=== PATIENT | female | born 1955 | race Caucasian/White ===

== ENCOUNTER 2024-04-29 05:34 | Observation (INO) ==
[~2024-04-29 05:34] MED LIST: NS 0.45% 1000 ml BAG 1,000 ML IV SCH; Naloxone 0.4 mg VIAL 0.4 mg/ml 1 ml VIAL IV PRN; Ondansetron 4 mg VIAL 2 MG/ML 2 ml VIAL IV PRN
[2024-04-29] MEDS: Buffered Lidocaine 1% SYRIN 1 ml INTRADERM ONE (06:01)
[2024-04-29] MEDS ORDERED: Tranexamic Acid 1 GM/100ML BAG 2,000 MG/200 ML BAG IV ONE (06:08)
[2024-04-29] MEDS ORDERED: ceFAZolin 2 GM PREMIX 2 GM/50 ML BAG ONE (06:08)
[2024-04-29] MEDS: Lactated Ringers 1000 ml BAG 1,000 ML IV SCH ×2 (06:20→12:16)
[2024-04-29] MEDS ORDERED: ROPIVACAINE 5 MG/ML 30 ML BTL (0.5%) ONE (06:33)
[2024-04-29 06:38] LABS: Rapid COVID-19 Molecular Undetected (Undetected)
[2024-04-29] MEDS ORDERED: fentaNYL 100 mcg/2 ml 50 MCG/ML VIAL ONE ×2 (07:18→10:28)
[2024-04-29] MEDS ORDERED: Lidocaine 2% PF 5 ML VIAL ONE (07:18)
[2024-04-29] MEDS ORDERED: Rocuronium 50 mg VIAL 10 mg/ml 5 ml VIAL (50 mg) ONE (07:18)
[2024-04-29] MEDS ORDERED: Phenylephrine IV 10 MG/ML 1 ml VIAL ONE (07:18)
[2024-04-29] MEDS ORDERED: Midazolam 2 mg/2 ml VIAL 1 mg/ml 2 ml VIAL (2 mg) ONE ×2 (07:18→07:59)
[2024-04-29] MEDS ORDERED: Propofol 10 MG/ML 20 ML BTL ONE (07:18)
[2024-04-29] MEDS ORDERED: Famotidine IV 10 MG/ML 2 ml VIAL (20 mg) ONE (07:48)
[2024-04-29] MEDS ORDERED: Scopolamine 1 mg/72hr PATCH ONE (08:37)
[2024-04-29] MEDS ORDERED: Dexamethasone IV 4 MG/ML VIAL 1 ml VIAL ONE (08:42)
[2024-04-29] MEDS ORDERED: Ondansetron 4 mg VIAL 2 MG/ML 2 ml VIAL ONE (08:42)
[2024-04-29] MEDS ORDERED: Calcium Carb (TUMS) 500 mg CHEW TAB PO PRN (09:09)
[2024-04-29] MEDS ORDERED: Lactulose 30 ml UDC PO PRN (09:09)
[2024-04-29] MEDS ORDERED: Ondansetron 4 mg VIAL 2 MG/ML 2 ml VIAL IV PRN (09:09)
[2024-04-29] MEDS ORDERED: Ondansetron ODT 4 mg TAB 4 MG TAB PO PRN (09:09)
[2024-04-29] MEDS ORDERED: Morphine 2 MG/ML SYRINGE IV PRN (09:09)
[2024-04-29] MEDS: fentaNYL 100 mcg/2 ml 50 MCG/ML VIAL IV PRN (10:29)
[2024-04-29] MEDS: Acetaminophen IV 1 GM/100ML 1,000 MG/100 ML BAG IV ONE (11:10)
[2024-04-29] MEDS ORDERED: Polyethylene Glycol 3350 17 GM PACKET PO PRN (12:00)
[2024-04-29 14:02] VITALS: BP 140/92
[2024-04-29] MEDS: ceFAZolin 2 GM PREMIX 2 GM/50 ML BAG IV SCH (16:08)
[2024-04-30] MEDS ORDERED: Vitamin THERAPEUTIC TAB PO SCH (09:00)
[2024-04-30] MEDS ORDERED: Polyethylene Glycol 3350 17 GM PACKET PO SCH (09:00)
== END 2024-04-29 17:11 | disposition home or self-care (01) ==
LOC: SSU 05:34 → OR 05:34
PROVIDERS: ADMIT Orthopaedic Surgery Adult Reconstructive Orthopaedic Surgery; ATTEND Orthopaedic Surgery Adult Reconstructive Orthopaedic Surgery